=== PATIENT | male | born 1955 | race Caucasian/White ===

== ENCOUNTER 2016-05-05 08:04 | Emergency (ER) | payer OTHER ==
[~2016-05-05] VITALS: Ht 170.2 cm; Wt 70.3 kg
[~2016-05-05 08:04] MED LIST: ACET500C PO; AMLO10TA2 PO; ATOR1TAB18 PO; FISHCAP4 PO; GABA400C5 PO; GLIP5TAB8 PO; HYDR25TA35 PO; PROP10TA6 PO
[2016-05-05 08:16] VITALS: BP 154/86; PULSE 83; RESP 18; TEMP 98.3; O2SAT 97
[2016-05-05] MEDS ORDERED: AMOX500T PO (08:40)
[2016-05-05] MEDS ORDERED: TRAM50TA PO (08:40)
--- NOTE | 2016-05-05 08:47 | PD ---
HPI Chief Complaint: ENT Complaint Time Seen by Provider: 08:33 Travel History International Travel<30 days: No Contact w/Intl Traveler<30days: No Traveled to known affect area: No History of Present Illness HPI This patient complains of right ear pain. It's radiating into his right cheek and jaw. Hearing seems muffled on the right ear. No fever. No chest symptoms. Severity is moderate PFSH Past Medical History High Cholesterol: Yes Diabetes: Yes Patient Takes Glucophage: No Diminished Hearing: No Hypertension: Yes Influenza Vaccination: No ?: Not Social History Alcohol Use: No Tobacco Use: Yes (04/13) Substance Use: No Allergies-Medications (Allergen,Severity, Reaction): Coded Allergies: No Known Allergies (Unverified , 05/05/16) Reported Meds & Prescriptions Reported Meds & Active Scripts Active Tramadol (Tramadol HCl) 50 Mg Tab 50 Mg PO Q6H PRN Amoxicillin 500 Mg Tab 500 Mg PO TID Amlodipine (Amlodipine Besylate) 10 Mg Tab 10 Mg PO DAILY Propranolol (Propranolol HCl) 10 Mg Tab 10 Mg PO TID Hydralazine (Hydralazine HCl) 25 Mg Tab 25 Mg PO TID Take with a meal Gabapentin 400 Mg Cap 400 Cap PO BID Atorvastatin (Atorvastatin Calcium) 80 Mg Tab 80 Mg PO HS Glipizide 5 Mg Tab 5 Mg PO BIDAC Take 30 minutes before a meal Reported Acetaminophen 500 Mg Cap 1,000 Mg PO Q4-6H PRN Fish Oil + D3 (Fish Oil-Cholecalciferol) 1,200-1,000 Mg-Unit Cap 1 Cap PO DAILY Review of Systems General / Constitutional: No: Fever HENT: No: Headaches Cardiovascular: No: Chest Pain or Discomfort Physical Exam Narrative NECK: Symmetrical appearance, midline trachea. No mass or crepitus. Thyroid without enlargement, tenderness, or mass. SKIN: Inspection shows no rash or ulcers. Palpation shows no induration or nodules. Throat clear Left TM and canal normal Right canal normal but right TM is bulging with fluid behind it and diminished landmarks No erythema or warmth or swelling of the face or jaw Data Data Last Documented VS Vital Signs Date Time Temp Pulse Resp B/P Pulse Ox O2 Delivery O2 Flow Rate FiO2 05/05/16 08:16 98.3 83 18 154/86 97 Room Air MDM Medical Decision Making Medical Screen Exam Complete: Yes Emergency Medical Condition: Yes Medical Record Reviewed: Yes Differential Diagnosis Otitis media, pharyngitis, otitis externa Narrative Course I have reviewed the patient's electronic medical record. Presentation seems most consistent with otitis media on the right side. I don' t see any evidence of abnormality other than the eardrum itself I prescribed some amoxicillin and something for pain. He says he is seeing his family doctor in 2 days Diagnosis Primary Impression: Right acute otitis media Additional Instructions: The patient was advised to follow up with their physician and return if they worsen. The patient was warned about potential sedation for the medications they will receive on prescription. Med/Other Pt SpecificInfo: Prescription(s) given Scripts Tramadol 50 Mg Tab50 Mg PO Q6H PRN (PAIN) #15 TAB Ref 0 Prov:Tima Varela MD 05/05/16 Amoxicillin 500 Mg [id number] Mg PO TID #21 TAB Ref 0 Prov:Tima Varela MD 05/05/16 Disposition: 01 DISCHARGE HOME Condition: Stable Tima Varela MD May 05, 2016 08:47
== END 2016-05-05 08:55 | disposition home or self-care (01) ==
LOC: PHED 08:04 → PHEFT 08:55
DX: H66.91 Otitis media, unspecified, right ear (principal); F17.200 Nicotine dependence, unspecified, uncomplicated
CPT/HCPCS: 99282

== ENCOUNTER 2016-05-07 13:40 | Inpatient (IN) | payer MEDICAID, OTHER ==
[~2016-05-07] VITALS: Ht 177.8 cm; Wt 73.4 kg
[2016-05-07] VITALS (11 sets, daily range): BP systolic 116–132; BP diastolic 62–73; PULSE 53–90; RESP 0–22; TEMP 96.3–98.6; O2SAT 96–100
[~2016-05-07 13:40] MED LIST changes: +AMOX500T PO; +TRAM50TA PO
[2016-05-07] MEDS ORDERED: DOPamine INJ PREMIX 500 ML ONE (13:57)
[2016-05-07] MEDS ORDERED: SODIUM CHLORIDE 0.9% FLUSH 5 ML FLUSH IVF PRN ×2 (14:00→14:45)
--- NOTE | 2016-05-07 14:08 | PD ---
HPI . CODE BLUE Chief Complaint: Respiratory Distress Time Seen by Provider: 13:53 Travel History International Travel<30 days: No Contact w/Intl Traveler<30days: No Traveled to known affect area: No History of Present Illness HPI Patient presented to us after successfully being resuscitated following CODE BLUE. He was brought in by [facility]. They report 2 episodes of PEA cardiac arrest. They treated him with basic CPR, Combitube, epinephrine, atropine and bicarbonate. He arrived to us with a pulse and a blood pressure but no spontaneous respirations. PFSH Past Medical History Medical History: Unable to Obtain High Cholesterol: Yes Diabetes: Yes Patient Takes Glucophage: No Diminished Hearing: No Hypertension: Yes Past Surgical History Surgical History: Unable to Obtain Social History Alcohol Use: No Tobacco Use: Yes (04/13) Substance Use: No Allergies-Medications (Allergen,Severity, Reaction): Coded Allergies: No Known Allergies (Unverified , 05/05/16) Reported Meds & Prescriptions Reported Meds & Active Scripts Active Tramadol (Tramadol HCl) 50 Mg Tab 50 Mg PO Q6H PRN Amoxicillin 500 Mg Tab 500 Mg PO TID Amlodipine (Amlodipine Besylate) 10 Mg Tab 10 Mg PO DAILY Propranolol (Propranolol HCl) 10 Mg Tab 10 Mg PO TID Hydralazine (Hydralazine HCl) 25 Mg Tab 25 Mg PO TID Take with a meal Gabapentin 400 Mg Cap 400 Cap PO BID Atorvastatin (Atorvastatin Calcium) 80 Mg Tab 80 Mg PO HS Glipizide 5 Mg Tab 5 Mg PO BIDAC Take 30 minutes before a meal Reported Acetaminophen 500 Mg Cap 1,000 Mg PO Q4-6H PRN Fish Oil + D3 (Fish Oil-Cholecalciferol) 1,200-1,000 Mg-Unit Cap 1 Cap PO DAILY Review of Systems ROS Limitations: Unresponsive Except as stated in HPI: all other systems reviewed are Neg Physical Exam Narrative GENERAL: Patient is unresponsive with a [place] Coma Scale of 3 SKIN: Warm and dry. He is currently he called EMS reports she's had a couple of episodes of cyanosis. HEAD: Atraumatic. Normocephalic. EYES: Pupils are fixed and dilated. ENT: No nasal bleeding or discharge. Mucous membranes pink and moist. NECK: Trachea midline. CARDIOVASCULAR: Regular rate and rhythm. RESPIRATORY: No spontaneous respiratory effort. GASTROINTESTINAL: Abdomen soft, non-tender. It is distended. MUSCULOSKELETAL: No obvious deformities. No edema. NEUROLOGICAL: [place] Coma Score of 3. No response to intubation. PSYCHIATRIC: Unable to assess Data Data Last Documented VS Vital Signs Date Time Temp Pulse Resp B/P Pulse Ox O2 Delivery O2 Flow Rate FiO2 05/07/16 14:06 100 05/07/16 13:52 97.9 61 0 116/67 97 Orders Ckmb (Isoenzyme) Profile (05/07/16 13:53) Complete Blood Count With Diff (05/07/16 13:53) Comprehensive Metabolic Panel (05/07/16 13:53) Magnesium (Mg) (05/07/16 13:53) Prothrombin Time / Inr (Pt) (05/07/16 13:53) Act Partial Throm Time (Ptt) (05/07/16 13:53) Troponin I (05/07/16 13:53) Chest, Single Ap (05/07/16 13:53) Ecg Monitoring (05/07/16 13:53) Bilateral Bp Monitoring (05/07/16 13:53) Iv Access Insert/Monitor (05/07/16 13:53) Oximetry (05/07/16 13:53) Oxygen Administration (05/07/16 13:53) Sodium Chloride 0.9% Flush (Ns Flush) (05/07/16 14:00) Ct Brain W/O Iv Contrast(Rout) (05/07/16 ) Dopamine Inj Premix (Dopamine Inj Premix (05/07/16 13:57) Continue Urinary Catheter .ONCE (05/07/16 14:03) Urinalysis - C+S If Indicated (05/07/16 14:03) Janak-Gastric Tube Insert/Mon (05/07/16 14:03) Ct Pulmonary Angiogram (05/07/16 14:08) Drug Screen, Random Urine (05/07/16 14:08) Labs Laboratory Tests Test 05/07/16 14:00 White Blood Count 15.7 TH/MM3 Red Blood Count 2.97 MIL/MM3 Hemoglobin 9.4 GM/DL Hematocrit 31.4 % Mean Corpuscular Volume 105.8 FL Mean Corpuscular Hemoglobin 31.7 PG Mean Corpuscular Hemoglobin 30.0 % Concent Red Cell Distribution Width 18.7 % Platelet Count 537 TH/MM3 Mean Platelet Volume 9.5 FL Neutrophils (%) (Auto) % Lymphocytes (%) (Auto) % Monocytes (%) (Auto) % Eosinophils (%) (Auto) % Basophils (%) (Auto) % Neutrophils # (Auto) TH/MM3 Lymphocytes # (Auto) TH/MM3 Monocytes # (Auto) TH/MM3 Eosinophils # (Auto) TH/MM3 Basophils # (Auto) TH/MM3 CBC Comment AUTO DIFF MDM Medical Decision Making Medical Screen Exam Complete: Yes Emergency Medical Condition: Yes Medical Record Reviewed: Yes Interpretation(s) EKG shows a sinus rhythm with a first-degree block. He has some minimal ST segment depression laterally. Differential Diagnosis Differential diagnosis includes primary cardiac arrest, respiratory arrest, head injury, drug intoxication, diabetic coma Narrative Course Patient presents status post successful resuscitation from a cardiac arrest. He now has a pulse pressure. His blood pressure has been drifting down so dopamine has been started. He has a [place] Coma Score of 3. The intensive care unit will accept the patient straight from CT. Critical Care Narrative Aggregate critical care time was 30 minutes. Time to perform other separately billable procedures was not included in the critical care time. My time did not include minutes spent treating any other patients simultaneously or on activities that did not directly contribute to the patient's treatment. The services I provided to this patient were to treat and/or prevent clinically significant deterioration that could result in: Further neurological or cardiac disability I provided critical care services requiring my management, as noted below: Chart data review, documentation time, medication orders and management, vital sign assessments/reviewing monitor data, ordering and reviewing lab tests, ordering and interpreting/reviewing x-rays and diagnostic studies, care of the patient and discussion of the patient with the admitting physicians. Procedures Procedure Narrative The procedure was done in emergently. Therefore, was obtained. INTUBATION: The patient was put in optimal position for the procedure. The patient did not require rapid sequence intubation. The patient was intubated with a 8-0 cuffed endotracheal tube. Tube placement was confirmed by visualization of the tube and balloon passing through the cords, capnometry and subsequent chest x-ray. Breath sounds were equal and well aerated bilaterally postintubation. No breath sounds over stomach. Patient tolerated procedure well. EKG Prior to Arrival: Yes Physician Communication Physician Communication Dr. Jama was consult shortly after patient's arrival regarding possible cooling of the patient. He has requested a CT of the head, CT for PE and a drug screen. He will then make a decision regarding cooling. Diagnosis Primary Impression: Cardiac arrest Admitting Information Admitting Physician Requests: Admit Condition: Serious Maritza Garcia MD May 07, 2016 14:08
[2016-05-07 14:23] LABS: HEMATOCRIT 31.4 % (39.0-51.0); MEAN CELL VOLUME 105.8 FL (80.0-100.0); MEAN CORPUSCULAR HEMOGLOBIN 31.7 PG (27.0-34.0); PLATELET COUNT 537 TH/MM3 (150-450); RED BLOOD COUNT 2.97 MIL/MM3 (4.50-5.90); RED CELL DISTRIBUTION WIDTH 18.7 % (11.6-17.2); WHITE BLOOD COUNT 15.7 TH/MM3 (4.0-11.0)
[2016-05-07 14:24] LABS: HEMO FLAGS AUTO DIFF
[2016-05-07 14:30] LABS: INTERNATIONAL NORMALIZED RATIO 1.1 RATIO
[2016-05-07 14:31] LABS: APTT (PATIENT) 50.9 SEC (24.3-30.1)
[2016-05-07 14:37] LABS: BACTERIA, URINE MOD /hpf; BLOOD, URINE MOD (NEG); COMMENT (UR) CATH-CULTURE IND; CULTURE IF INDICATED CATH CULTURE IND; GLUCOSE,URINE TRACE mg/dL (NEG); KETONE, URINE TRACE mg/dL (NEG); NITRITE,URINE NEG (NEG); SQUAMOUS EPITHELIAL CELL URINE 1 /hpf (0-5); URINE COLOR YELLOW (YELLW/STRAW)
[2016-05-07] MEDS ORDERED: IOHEXOL 350 MG/ML 10 ML VIAL (for RAD DIAG) IV ONE (14:38)
[2016-05-07] MEDS ORDERED: SODIUM CHLOR 0.9% 1000 ML INJ 1,000 ML IV SCH ×4 (14:41→16:30)
--- NOTE | 2016-05-07 14:41 | RADRPT ---
EXAM DATE/TIME: 05/07/2016 14:26 [facility] COMPARISON: No previous studies available for comparison. INDICATIONS : Found unresponsive in asystole; status-post code. RADIATION DOSE: 59.65 CTDIvol (mGy) MEDICAL HISTORY : Hypertension. Diabetes mellitus type 2. SURGICAL HISTORY : None. ENCOUNTER: Initial ACUITY: 1 day PAIN SCALE: Non-responsive LOCATION: cranial TECHNIQUE: Multiple contiguous axial images were obtained of the head. Using automated exposure control and adj ustment of the mA and/or kV according to patient size, radiation dose was kept as low as reasonably a chievable to obtain optimal diagnostic quality images. FINDINGS: CEREBRUM: The ventricles are normal for age and symmetric. There is a focal hypodensity identified within the w lilliam matter adjacent to the right lateral ventricle. The bennett-white matter is otherwise well-preserve d. No evidence of sulcal effacement or midline shift. POSTERIOR FOSSA: The cerebellum and brainstem are intact. The 4th ventricle is midline. The cerebellopontine angle i s unremarkable. EXTRACRANIAL: The visualized portion of the orbits is intact. SKULL: The calvaria is intact. No evidence of skull fracture. CONCLUSION: Focal hypodensity adjacent to the right lateral ventricle. Chronicity is unknown. No evidence of sulc al effacement, mass effect or midline shift. Consider MRI when clinically able.. Bisi Sprague MD on May 07, 2016 at 14:38 Board Certified Radiologist. This report was verified electronically.
[2016-05-07] MEDS ORDERED: RESP: ALBUTEROL 2.5 MG/IPRATROPIUM 0.5 MG NEB (PRN) INH (14:45)
[2016-05-07] MEDS ORDERED: PROPOFOL 1000 MG/100 ML BTL IV PRN (14:45)
[2016-05-07] MEDS ORDERED: PROPOFOL 1000 MG/100 ML INJ 100 ML ONE (14:45)
[2016-05-07] MEDS ORDERED: MISCELLANEOUS NURSING INFORMATION XX SCH (14:45)
[2016-05-07] MEDS ORDERED: ACETAMINOPHEN 325 MG TAB PO PRN (14:45)
[2016-05-07] MEDS ORDERED: CHLORHEXIDINE GLUCONATE 2 % 1 PACK (2 CLOTHS) TOP PRN (14:45)
--- NOTE | 2016-05-07 14:47 | RADRPT ---
EXAM DATE/TIME: 05/07/2016 14:33 Caution: Report not yet finalized and possibly incomplete! INDICATIONS : Found unresponsive in asystole; status-post code. IV CONTRAST: 70 cc Omnipaque 350 (iohexol) IV RADIATION DOSE: 23.40 CTDIvol (mGy) MEDICAL HISTORY : Hypertension. Diabetes mellitus type 2. SURGICAL HISTORY : None. ENCOUNTER: Initial ACUITY: 1 day PAIN SCALE: Non-responsive LOCATION: chest TECHNIQUE: Volumetric scanning of the chest was performed using a pulmonary embolism protocol MIP images were re constructed. Using automated exposure control and adjustment of the mA and/or kV according to patien t size, radiation dose was kept as low as reasonably achievable to obtain optimal diagnostic quality images. FINDINGS: The examination is of good diagnostic quality. No pulmonary embolus is identified. There are large bilateral pleural effusions. There mild atelectatic changes in both lung bases. There is diffuse interstitial edema consistent with congestive failure. The heart is mildly enlarged. There is no significant hilar, mediastinal or axillary adenopathy. The endotracheal tube and nasogast liat tube are in good position. The limited portions of upper abdomen visualized demonstrate some mild induration or edema throughout the retroperitoneum. The visualized bony structures are grossly intact. CONCLUSION: 1. No pulmonary embolus identified. 2. Bilateral pleural effusions, cardiomegaly and compressive atelectasis. Rigo Alston MD on May 07, 2016 at 14:43 Board Certified Radiologist. This report was verified electronically.
[2016-05-07 14:56] LABS: ALKALINE PHOSPHATASE 121 U/L (45-117); ALT (GPT) 21 U/L (12-78); ANION GAP 20 MEQ/L (5-15); AST (GOT) 25 U/L (15-37); BICARBONATE 14.5 MEQ/L (21.0-32.0); BLOOD UREA NITROGEN 86 MG/DL (7-18); CHLORIDE 106 MEQ/L (98-107); CREATINE KINASE 122 U/L (39-308); GLOMERULAR FILTRATION RATE 7 ML/MIN (>89); MAGNESIUM 2.5 MG/DL (1.5-2.5); POTASSIUM 6.4 MEQ/L (3.5-5.1); SODIUM (NA) 140 MEQ/L (136-145); TOTAL BILIRUBIN ADULT 0.5 MG/DL (0.2-1.0)
[2016-05-07] MEDS ORDERED: LORazepam 2 MG/ML VIAL ONE (14:56)
[2016-05-07] MEDS ORDERED: ENOXAPARIN SODIUM 40 MG/0.4 ML SYRINGE SQ SCH (15:00)
[2016-05-07 15:01] LABS: CORRECTED NUCLEATED RBC 1 /100 WBC (0-0); EOSINOPHILS 2 % (0-4); METAMYELOCYTES 1 % (0-1); MYELOCYTES 2 % (0-0); NEUTROPHIL # MANUAL DIFF 8.9 TH/MM3 (1.8-7.7); PLATELET ESTIMATE SMEAR HIGH (NORMAL); PLATELET MORPHOLOGY NORMAL (NORMAL); POLYS (SEG NEUTROPHILS) 54 % (16-70); SCAN/DIFF FINAL DIFF MANUAL; WBC DIFF SAMPLE 100
[2016-05-07 15:09] LABS: CKMB 6.3 NG/ML (0.5-3.6)
[2016-05-07 15:18] LABS: BLOOD GAS BASE EXCESS -16.3 mmol/L (-2-2); BLOOD GAS CARBOXYHEMOGLOBIN 1.7 % (0-4); BLOOD GAS HCO3 12 mmol/L (22-26); BLOOD GAS METHEMOGLOBIN 1.6 % (0-2); BLOOD GAS O2 HGB SATURATION 96 % (90-100); BLOOD GAS OXYGEN CONTENT 14.9 Vol % (12.0-20.0); BLOOD GAS PCO2 40 mmHg (38-42); BLOOD GAS PO2 361 mmHG (61-120); BLOOD GAS TOTAL HGB 10.4 G/DL (12.0-16.0); CRITICAL VALUE YES; OXYGEN DEVICE VENTILATOR; TEMP CORR TO 98.6
[2016-05-07 15:19] LABS: DRAW SITE RT RADIAL; FIO2 100 %; NUMBER OF ARTERIAL PUNCTURES 1; STAT YES; ULNAR PULSE PRESENT
[2016-05-07] MEDS ORDERED: INSULIN HUMAN REGULAR 1,000 UNITS/10 ML VIAL IV PUSH STA (15:22)
[2016-05-07] MEDS ORDERED: CALCIUM CHLORIDE INJ 2 GM in DEXTROSE 5% IN WATER 100ML INJ 100 ML IV STA ×2 (15:22)
[2016-05-07] MEDS ORDERED: MIDAZOLAM 100 MG/ML INJ 100 ML IV SCH (15:30)
[2016-05-07] MEDS ORDERED: DEXTROSE 50% IN WATER 50 ML VIAL(D50) IV PUSH ONE (15:30)
[2016-05-07] MEDS ORDERED: RESP: ALBUTEROL 2.5 MG/IPRATROPIUM 0.5 MG NEB (SCH) NEB ONE (15:30)
[2016-05-07] MEDS ORDERED: SODIUM BICARBONATE 8.4% INJ 50 MEQ/50 ML SYR IV PUSH ONE ×2 (15:30)
--- NOTE | 2016-05-07 15:32 | HHI.HP ---
[facility] Service Critical Care Medicine Primary Care Physician Mima Molina MD Admission Diagnosis cardiac arrest Diagnosis: (1) Cardiac arrest Diagnosis: Principal (2) Asystole Diagnosis: Principal (3) PEA (Pulseless electrical activity) Diagnosis: Principal (4) Anoxic brain injury Diagnosis: Principal (5) Shock Diagnosis: Principal (6) Lactic acidemia Diagnosis: Principal (7) Sepsis Diagnosis: Principal (8) Acute on chronic kidney failure Diagnosis: Principal (9) Hyperkalemia Diagnosis: Principal (10) UTI (urinary tract infection) Diagnosis: Principal (11) Probable mitral valve vegetation Diagnosis: Principal (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 (13) Pulmonary edema Diagnosis: Principal (14) Diabetes Diagnosis: Secondary (15) Hypertension Diagnosis: Secondary (16) Tobacco use disorder Diagnosis: Secondary Chief Complaint: Cardiac arrest Anoxic brain injury Travel History International Travel<30 Days: No Contact w/Intl Traveler <30 Da: No Traveled to Known Affected Are: No Sepsis Criteria SIRS Criteria (2 or more): Heart rate over 90, WBC > 49870, < 4000 or > 10% bands Sepsis Criteria (SIRS+source): Infect source susp/known Severe Sepsis (+one): Organ Dysfunction, Hypotension Septic Shock Criteria: Lactic acid >=4 Criteria Outcome: Meets septic shock criteria History of Present Illness Patient is a 60-year-old male with past medical history significant for chronic kidney disease, hypertension, diabetes, dyslipidemia and tobacco abuse. Patient was brought to the ER after being successfully resuscitated following CODE BLUE. Apparently patient's mother went shopping for approximately 30 minutes, when she came back she found the patient slumped over on a chair. She immediately called EMS but did not start CPR. Within the next 10-15 minutes patient's brother in law arrived and attempted to do CPR. EMS arrived in next 5 -10 min and they took approximately 25 minutes CPR, epinephrine, atropine and bicarbonate to regain spontaneous circulation back. Initial rhythm on EMS arrival was asystole, intermittently patient was in PEA before actually getting return of spontaneous circulation. A Combitube was placed which was exchanged for endotracheal tube in the ED. Patient did not require any medication for intubation and did not have any gag reflex or cough. Pupils were dilated and fixed on arrival to the ED. I was called for evaluation for code cool. Patient was emergently sent for a CT of the head and CT PE protocol of the chest. CT head without any acute bleed but there was a chronic appearing small hypodensity near the right ventricle. CT chest did not show PE but showed bilateral pleural effusions. Lab data showed a BUN of 86 creatinine of 7.8 potassium of 6.4. His white count was 15.7 his ABG showed a pH of 7.09 PCO2 of 40 and PO2 of 361. Hyperkalemia was immediately treated with calcium chloride, 2 Amps of bicarbonate followed by bicarbonate infusion, 7 units IV insulin followed by D50. 2-D echo which was being done simultaneously- on my review showed normal ejection fraction mild MR and a possible vegetation of the anterior mitral valve. Official report is pending, discussed with Dr. Allen I evaluated the patient in the ED and also discussed with the ER physician. Patient's downtime is unknown and clearly he was in cardiac arrest more than 45 minutes prior to return of spontaneous circulation. Patient is comatose and is now has developed myoclonus. He does not meet criteria for induced hypothermia due to prolonged more than 45 minutes downtime and evidence of severe anoxic injury, and also initial rhythm being asystole. I discussed this with patient' s sister Kim and mother was also with her. Family requested to make the patient a DNR and not to resuscitated anymore. Review of Systems ROS Limitations: Intubated, Unresponsive Past Family Social History Allergies: Coded Allergies: No Known Allergies (Unverified , 05/05/16) Past Medical History Chronic kidney disease Type 2 diabetes Hypertension Dyslipidemia Tobacco abuse Past Surgical History Unknown Reported Medications Tramadol (Tramadol HCl) 50 Mg Tab 50 Mg PO Q6H PRN Amoxicillin 500 Mg Tab 500 Mg PO TID Amlodipine (Amlodipine Besylate) 10 Mg Tab 10 Mg PO DAILY Propranolol (Propranolol HCl) 10 Mg Tab 10 Mg PO TID Hydralazine (Hydralazine HCl) 25 Mg Tab 25 Mg PO TID Gabapentin 400 Mg Cap 400 Cap PO BID Atorvastatin (Atorvastatin Calcium) 80 Mg Tab 80 Mg PO HS Glipizide 5 Mg Tab 5 Mg PO BIDAC Acetaminophen 500 Mg Cap 1,000 Mg PO Q4-6H PRN Fish Oil + D3 (Fish Oil-Cholecalciferol) 1,200-1,000 Mg-Unit Cap 1 Cap PO DAILY Active Ordered Medications Reviewed Family History Unable to obtain at this time Social History Half pack a day cigarette smoker Physical Exam Vital Signs Vital Signs Date Time Temp Pulse Resp B/P Pulse Ox O2 Delivery O2 Flow Rate FiO2 05/07/16 14:06 100 05/07/16 13:52 97.9 61 0 116/67 97 05/07/16 13:45 97.9 53 20 116/67 97 Physical Exam GENERAL: Patient is comatose on the vent, GCS 3 now with myoclonus SKIN: Warm and dry. No rashes HEAD: Atraumatic. Normocephalic. EYES: Pupils are fixed and dilated at 5 mm. ENT: No nasal bleeding or discharge. Orotracheally intubated NECK: Trachea midline. CARDIOVASCULAR: Regular rate and rhythm. Systolic murmur heard in all areas RESPIRATORY: Intubated on the vent. Air entry equal bilaterally no wheezes. Heart spontaneous breathing GASTROINTESTINAL: Abdomen soft, non-tender. MUSCULOSKELETAL: No obvious deformities. No edema. NEUROLOGICAL: [place] Coma Score of 3. Comatose. No withdrawal to deep pain. Involuntary jerky movements of upper and lower extremities indicating myoclonus. Laboratory Laboratory Tests Test 05/07/16 05/07/16 14:00 14:12 White Blood Count 15.7 Red Blood Count 2.97 Hemoglobin 9.4 Hematocrit 31.4 Mean Corpuscular Volume 105.8 Mean Corpuscular Hemoglobin 31.7 Mean Corpuscular Hemoglobin 30.0 Concent Red Cell Distribution Width 18.7 Platelet Count 537 Mean Platelet Volume 9.5 Neutrophils (%) (Auto) Lymphocytes (%) (Auto) Monocytes (%) (Auto) Eosinophils (%) (Auto) Basophils (%) (Auto) Neutrophils # (Auto) Lymphocytes # (Auto) Monocytes # (Auto) Eosinophils # (Auto) Basophils # (Auto) CBC Comment AUTO DIFF Prothrombin Time 12.0 Prothromb Time International 1.1 Ratio Activated Partial 50.9 Thromboplast Time Urine Color YELLOW Urine Turbidity HAZY Urine pH 6.0 Urine Specific [place] 1.013 Urine Protein 300 Urine Glucose (UA) TRACE Urine Ketones TRACE Urine Occult Blood MOD Urine Nitrite NEG Urine Bilirubin NEG Urine Urobilinogen LESS THAN 2.0 Urine Leukocyte Esterase NEG Urine RBC 74 Urine WBC 18 Urine Squamous Epithelial 1 Cells Urine Amorphous Sediment RARE Urine Bacteria MOD Microscopic Urinalysis Comment CATH-CULTURE IND Date/Time Procedure Status Source Growth 05/07/16 14:12 Urine Culture Received Urine Catheterized Urine Pending Result Diagram: 05/07/[address] brain no hypodensity adjacent to right ventricle CT chest-no PE, bilateral moderate pleural effusions Septic Shock Reassessment Heart: Regular rate and rhythm Lungs: Course Skin: Cold Peripheral Pulses: Weak Right Radial Weak Left Radial Capillary Refill: Brisk Assessment and Plan Assessment and Plan NEURO: Anoxic brain injury 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 No weaning trials until mentation improved -DuoNeb every 6 hours and when necessary, ventilator bundle -Empiric Zosyn CV: Cardiac arrest/Asystole Shock Probable mitral valve regurgitation Pulmonary edema Mild troponin elevation Lactic acidosis -Return of spontaneous circulation after 25 minutes of CPR, prolonged downtime prior to initiation of CPR -Unclear etiology of asystole, could be hyperkalemia versus acute NM -2-D echo official report pending, EF normal on my review with possible anterior mitral leaflet vegetation -Cycle troponin. I will not consult cardiology due to very poor neuro exam -Normal saline IV fluids 3 L bolus and bicarbonate infusion at 75 mL per -On dopamine to keep map above 65 GI: -Nothing by mouth except meds, IV Protonix : Acute on chronic kidney failure Hyperkalemia -Hyperkalemia treated with calcium chloride, bicarbonate, IV insulin followed by D50, and breathing treatment -Monitor renal function closely. Place O[place] catheter. Acute renal failure workup. Nephrology consult only if not improving given poor neuro prognosis\ -Repeat CMP in 1 hour. 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 D/W Dr. Allen -Trend lactic acid HEME: Anemia, microcytic -Monitor CBC, CMP, coags. Check B-12, TSH ENDO: Type 2 diabetes -Carefully replace electrolytes -Hyperkalemia treatment as above -SSI if needed PROPH: -Bilateral lower extremity SCDs. Heparin 5000 units subcutaneous every 12. IV Protonix 40 mg daily for GI prophylaxis LINES: -Utilize peripheral IVs, place central line if needed CC time 120 min excluding procedures Code Status Full Code Discussed Condition With ED physician, and also Dr. Allen about Echo Problem Qualifiers (1) Sepsis: Qualified Code: A41.9 - Sepsis, due to unspecified organism (2) UTI (urinary tract infection): (3) Pulmonary edema: Qualified Code: J81.0 - Acute pulmonary edema (4) Diabetes: (5) Hypertension: Qualified Code: I10 - Essential hypertension Milena Jama MD May 07, 2016 15:32
[2016-05-07] MEDS: PROPOFOL 1000 MG/100 ML INJ 100 ML IV SCH ×2 (15:34→21:21)
[2016-05-07 15:36] LABS: AMPHETAMINE, URINE NEG (NEG); BARBITURATES, URINE NEG (NEG); COCAINE, URINE NEG (NEG)
--- NOTE | 2016-05-07 15:49 | RADRPT ---
EXAM DATE/TIME: 05/07/2016 15:22 [facility] COMPARISON: CHEST PA & LAT, March 14, 2016, 22:32. INDICATIONS : Chest pain. MEDICAL HISTORY : Hypertension. Diabetes mellitus type II. SURGICAL HISTORY : None. ENCOUNTER: Initial ACUITY: 1 day PAIN SCORE: Non-responsive. LOCATION: Not available FINDINGS: Portable supine view of the chest demonstrates an endotracheal tube with the tip just beyond the leve l of the clavicles. Nasogastric tube with the proximal port below the level of the diaphragm. Heart size appears normal. Bilateral cephalization of pulmonary vasculature and adjacent indistinctne ss of the parenchyma consistent with volume overload versus pulmonary edema. Osseous structures are intact. CONCLUSION: Lines and tubes appear appropriate in position. Findings consistent with volume overload versus pulmo nary edema.. Bisi Sprague MD on May 07, 2016 at 15:45 Board Certified Radiologist. This report was verified electronically.
[2016-05-07] MEDS: SODIUM BICARBONATE 8.4% INJ 75 MEQ in SODIUM CHLOR 0.9% 1000 ML INJ 1,000 ML IV SCH (16:00)
[2016-05-07] MEDS: PIPERACIL-TAZO 2.25 GM PREMIX 50 ML IV SCH (16:32)
[2016-05-07] MEDS ORDERED: VANCOMYCIN INJ 1,150 MG in SODIUM CHLOR 0.9% 250 ML INJ 250 ML IV ONE (17:00)
[2016-05-07] MEDS: RESP: ALBUTEROL 2.5 MG/IPRATROPIUM 0.5 MG NEB (SCH) NEB ×2 (17:10→19:25)
--- NOTE | 2016-05-07 17:10 | EC ---
Study Study Date:05/07/2016 STUDY CONCLUSIONS SUMMARY - Left ventricle: The cavity size was normal. Wall thickness was normal. Systolic function was normal. The estimated ejection fraction was in the range of 55% to 60%. Wall motion was normal; there were no regional wall motion abnormalities. - Aortic valve: Valve area: 2.77cm^2 (Vmax). - Mitral valve: There was a possible, mobile vegetation on the left ventricular aspect of the anterior leaflet. Mild regurgitation. - Left atrium: The atrium was mildly dilated. - Tricuspid valve: Mild regurgitation. - Pulmonary arteries: Systolic pressure was mildly increased. PA peak pressure: 41mm Hg (S). If LV function is below 40, please consider prescribing an ACEI or ARB or document rationale for non-use. PROCEDURE DATA STUDY STATUS: Elective. Procedure: Transthoracic echocardiography. Image quality was good. Scanning was performed from the parasternal, apical, and subcostal acoustic windows. Study completion: The patient tolerated the procedure well. Transthoracic echocardiography. M-mode, complete 2D, complete spectral Doppler, and color Doppler. Patient status: Inpatient. CARDIAC ANATOMY LEFT VENTRICLE: The cavity size was normal. Wall thickness was normal. Systolic function was normal. The estimated ejection fraction was in the range of 55% to 60%. Wall motion was normal; there were no regional wall motion abnormalities. AORTIC VALVE: Trileaflet; mildly thickened, mildly calcified leaflets. Doppler: Transvalvular velocity was within the normal range. There was no stenosis. No regurgitation. Valve area: 2.77cm^2 (Vmax). AORTA: Aortic root: The aortic root was poorly visualized and normal in size. MITRAL VALVE: Mildly thickened leaflets, . There was a possible, mobile vegetation on the left ventricular aspect of the anterior leaflet. Doppler: Transvalvular velocity was within the normal range. There was no evidence for stenosis. Mild regurgitation. LEFT ATRIUM: The atrium was mildly dilated. RIGHT VENTRICLE: The cavity size was normal. Wall thickness was normal. PULMONIC VALVE: Doppler: Transvalvular velocity was within the normal range. There was no evidence for stenosis. Trace regurgitation. TRICUSPID VALVE: Structurally normal valve. Doppler: Transvalvular velocity was within the normal range. Mild regurgitation. PULMONARY ARTERY: Systolic pressure was mildly increased. RIGHT ATRIUM: The atrium was normal in size. PERICARDIUM: There was no pericardial effusion. SYSTEMIC VEINS: Inferior vena cava: The vessel was normal in size. BASIC MEASUREMENTS ADULT Normal Left ventricle LV internal dimension, ED, chordal level, *56.3 mm 43-52 PLAX LV internal dimension, ES, chordal level, 36.5 mm 23-38 PLAX Fractional shortening, chordal level, PLAX 35 % >29 LV posterior wall thickness, ED 7.6 mm IVS/LVPW ratio, ED 1.07 <1.3 Ventricular septum Septal thickness, ED 8.12 mm Aortic valve Leaflet separation 16 mm 15-26 BASIC MEASUREMENTS ADULT Normal Aortic valve Leaflet separation 16 mm 15-26 Aorta Root diameter, ED 21 mm 20-37 Left atrium Anterior-posterior dimension, ES *42 mm 19-40 LA/aortic root ratio 2 DOPPLER MEASUREMENTS ADULT Normal Main pulmonary artery Pressure, S *41 mm Hg =30 Aortic valve Peak velocity, S 152 cm/s Valve area, Vmax 2.77 cm^2 Mitral valve Maximal regurgitant velocity 389 cm/s Tricuspid valve Regurgitant peak velocity 308 cm/s Peak RV-RA gradient, S 38 mm Hg Maximal regurgitant velocity 308 cm/s Systemic veins Estimated CVP 10 mm Hg Right ventricle RV pressure, S *48 mm Hg <30 Pulmonic valve Peak velocity, S 136 cm/s LEGEND: Mean values are shown as u=mean value. Asterisk (*) pritchard values outside specified normal range. Prepared and signed by Tye Allen [id number]
[2016-05-07 17:45] LABS: BLOOD GAS BASE EXCESS -10.5 mmol/L (-2-2); BLOOD GAS CARBOXYHEMOGLOBIN 1.7 % (0-4); BLOOD GAS HCO3 15 mmol/L (22-26); BLOOD GAS METHEMOGLOBIN 1.3 % (0-2); BLOOD GAS O2 HGB SATURATION 86 % (90-100); BLOOD GAS OXYGEN CONTENT 9.9 Vol % (12.0-20.0); BLOOD GAS PCO2 32 mmHg (38-42); BLOOD GAS PO2 60 mmHg (61-120); BLOOD GAS TOTAL HGB 8.1 G/DL (12.0-16.0); CRITICAL VALUE YES; OXYGEN DEVICE VENTILATOR; TEMP CORR TO 98.6
[2016-05-07 17:46] LABS: DRAW SITE RT RADIAL; FIO2 40 %; NUMBER OF ARTERIAL PUNCTURES 1; STAT NO; ULNAR PULSE PRESENT; VENT SETTINGS PRVC/AC 20/600/
[2016-05-07 18:01] LABS: ALKALINE PHOSPHATASE 113 U/L (45-117); ALT (GPT) 27 U/L (12-78); ANION GAP 14 MEQ/L (5-15); AST (GOT) 37 U/L (15-37); BICARBONATE 17.9 MEQ/L (21.0-32.0); BLOOD UREA NITROGEN 89 MG/DL (7-18); CHLORIDE 107 MEQ/L (98-107); GLOMERULAR FILTRATION RATE 7 ML/MIN (>89); POTASSIUM 5.3 MEQ/L (3.5-5.1); SODIUM (NA) 139 MEQ/L (136-145); TOTAL BILIRUBIN ADULT 0.6 MG/DL (0.2-1.0)
[2016-05-07] MEDS ORDERED: CHLORHEXIDINE 0.12% (ORAL KIT) 15 ML CUP MT SCH (20:00)
[2016-05-07] MEDS: CHLORHEXIDINE 0.12% (ORAL KIT) 15 ML CUP MT SCH (21:20)
[2016-05-07] MEDS: SODIUM CHLORIDE 0.9% FLUSH 5 ML FLUSH IVF SCH (21:21)
[2016-05-07] MEDS: HEPARIN SODIUM - SQ 10,000 UNITS/ML VIAL SQ SCH (21:21)
[2016-05-07 21:59] LABS: MAGNESIUM 1.8 MG/DL (1.5-2.5)
[2016-05-08] VITALS (8 sets, daily range): BP systolic 150–160; BP diastolic 76–84; PULSE 94–112; RESP 24–25; TEMP 98.6–99.3; O2SAT 94–99
[2016-05-08] MEDS: PIPERACIL-TAZO 2.25 GM PREMIX 50 ML IV SCH ×2 (01:07→08:54)
[2016-05-08] MEDS: SODIUM BICARBONATE 8.4% INJ 75 MEQ in SODIUM CHLOR 0.9% 1000 ML INJ 1,000 ML IV SCH (03:18)
[2016-05-08] MEDS: PROPOFOL 1000 MG/100 ML INJ 100 ML IV SCH ×2 (03:18→05:44)
[2016-05-08] MEDS: RESP: ALBUTEROL 2.5 MG/IPRATROPIUM 0.5 MG NEB (SCH) NEB ×3 (03:42→16:00)
[2016-05-08] MEDS ORDERED: CHLORHEXIDINE GLUCONATE 2 % 1 PACK (2 CLOTHS) TOP SCH (04:00)
--- NOTE | 2016-05-08 06:13 | MG ---
cc: CYNTHIA TRIVEDI M.D. Lab No: Date: 05/07/2016 Age: Sex: M Race: REQUESTING PHYSICIAN Dr. Jama. An EEG was obtained on this 60-year-old patient with history of right hemisphere hypodensity, episodes of pulmonary embolism arrest. This was a STAT EEG, patient intubated and Diprivan on board. Tactile stimulation seems to make no change. The EEG shows prominent generalized attenuation. With the usual montage, mostly there is no overt brain origin background activity until the study shows a few brief episodes of polyspike, high amplitude and some slow wave activity lasting seconds or so and this was noted on a few occasions and is associated with some body jerking and eye jerking activity. Photic stimulation disclosed no change. INTERPRETATION Markedly abnormal EEG because of severe generalized attenuation and few episodes of high amplitude polyspike and some slow wave activity lasting a second or so. The findings suggest a severe diffuse disturbance of cerebral function, commonly seen in severe hypoxic encephalopathy. No ictal pattern. MD MONI Alexander/MICHELE /7:39 PM /6:11 AM
[2016-05-08 06:48] LABS: AUTOMATED NEUTROPHIL # 8.7 TH/MM3 (1.8-7.7); BASOPHIL % 0.1 % (0.0-2.0); HEMATOCRIT 26.2 % (39.0-51.0); HEMO FLAGS DIFF FINAL; LYMPH % 3.1 % (9.0-44.0); LYMPHOCYTE # 0.3 TH/MM3 (1.0-4.8); MEAN CELL VOLUME 95.9 FL (80.0-100.0); MEAN CORPUSCULAR HGB CONC 33.4 % (32.0-36.0); MONO % 11.1 % (0.0-8.0); NEUT % 85.7 % (16.0-70.0); PLATELET COUNT 379 TH/MM3 (150-450); RED BLOOD COUNT 2.73 MIL/MM3 (4.50-5.90); RED CELL DISTRIBUTION WIDTH 17.4 % (11.6-17.2); WHITE BLOOD COUNT 10.1 TH/MM3 (4.0-11.0)
[2016-05-08 07:23] LABS: BICARBONATE 15.6 MEQ/L (21.0-32.0); CALCIUM-PROTEIN CORRECTED 7.9 MG/DL (8.5-10.1); POTASSIUM 4.8 MEQ/L (3.5-5.1); TOTAL BILIRUBIN ADULT 0.5 MG/DL (0.2-1.0)
[2016-05-08] MEDS: HEPARIN SODIUM - SQ 10,000 UNITS/ML VIAL SQ SCH (08:54)
[2016-05-08] MEDS: SODIUM CHLORIDE 0.9% FLUSH 5 ML FLUSH IVF SCH (08:54)
[2016-05-08] MEDS ORDERED: PANTOPRAZOLE SODIUM 40 MG VIAL IV SCH (09:00)
[2016-05-08] MEDS: CHLORHEXIDINE 0.12% (ORAL KIT) 15 ML CUP MT SCH (09:02)
--- NOTE | 2016-05-08 10:51 | HHI.CCPN ---
Subjective Remarks/Hospital Course Patient is a 60-year-old male with past medical history significant for chronic kidney disease, hypertension, diabetes, dyslipidemia and tobacco abuse. Patient was brought to the ER after being successfully resuscitated following CODE BLUE. Apparently patient's mother went shopping for approximately 30 minutes, when she came back she found the patient slumped over on a chair. She immediately called EMS but did not start CPR. Within the next 10-15 minutes patient's brother in law arrived and attempted to do CPR. EMS arrived in next 5 -10 min and they took approximately 25 minutes CPR, epinephrine, atropine and bicarbonate to regain spontaneous circulation back. Initial rhythm on EMS arrival was asystole, intermittently patient was in PEA before actually getting return of spontaneous circulation. A Combitube was placed which was exchanged for endotracheal tube in the ED. Patient did not require any medication for intubation and did not have any gag reflex or cough. Pupils were dilated and fixed on arrival to the ED. I was called for evaluation for code cool. Patient was emergently sent for a CT of the head and CT PE protocol of the chest. CT head without any acute bleed but there was a chronic appearing small hypodensity near the right ventricle. CT chest did not show PE but showed bilateral pleural effusions. Lab data showed a BUN of 86 creatinine of 7.8 potassium of 6.4. His white count was 15.7 his ABG showed a pH of 7.09 PCO2 of 40 and PO2 of 361. Hyperkalemia was immediately treated with calcium chloride, 2 Amps of bicarbonate followed by bicarbonate infusion, 7 units IV insulin followed by D50. 2-D echo which was being done simultaneously- on my review showed normal ejection fraction mild MR and a possible vegetation of the anterior mitral valve. Official report is pending, discussed with Dr. Allen I evaluated the patient in the ED and also discussed with the ER physician. Patient's downtime is unknown and clearly he was in cardiac arrest more than 45 minutes prior to return of spontaneous circulation. Patient is comatose and is now has developed myoclonus. He does not meet criteria for induced hypothermia due to prolonged more than 45 minutes downtime and evidence of severe anoxic injury, and also initial rhythm being asystole. I discussed this with patient' s sister Kim and mother was also with her. Family requested to make the patient a DNR and not to resuscitated anymore. 05/08 Patient is sedated with Diprivan and intubated. On bicarb drip. Afebrile. Echo showed possible mobile vegetation on mitral valve, EF 55-60%. Afebrile. Objective Vital Signs Date Time Temp Pulse Resp B/P Pulse Ox O2 Delivery O2 Flow Rate FiO2 05/08/16 08:00 98.6 112 25 160/84 98 05/08/16 08:00 40 Intake and Output 05/07/16 05/07/16 05/08/16 08:00 16:00 00:00 Intake Total 1056 ml 432 ml Output Total 450 ml Balance 1056 ml -18 ml Result Diagram: 05/08/16 0612 05/08/16 06 Other Results Laboratory Tests Test 05/07/16 05/07/16 05/07/16 05/07/16 14:00 14:12 15:02 16:30 White Blood Count 15.7 TH/MM3 Red Blood Count 2.97 MIL/MM3 Hemoglobin 9.4 GM/DL Hematocrit 31.4 % Mean Corpuscular Volume 105.8 FL Mean Corpuscular Hemoglobin 31.7 PG Mean Corpuscular Hemoglobin 30.0 % Concent Red Cell Distribution Width 18.7 % Platelet Count 537 TH/MM3 Mean Platelet Volume 9.5 FL Neutrophils (%) (Auto) % Lymphocytes (%) (Auto) % Monocytes (%) (Auto) % Eosinophils (%) (Auto) % Basophils (%) (Auto) % Neutrophils # (Auto) TH/MM3 Lymphocytes # (Auto) TH/MM3 Monocytes # (Auto) TH/MM3 Eosinophils # (Auto) TH/MM3 Basophils # (Auto) TH/MM3 CBC Comment AUTO DIFF Differential Total Cells 100 Counted Neutrophils % (Manual) 54 % Lymphocytes % 18 % Monocytes % 23 % Eosinophils % 2 % Neutrophils # (Manual) 8.9 TH/MM3 Metamyelocytes 1 % Myelocytes 2 % Nucleated Red Blood Cells 1 /100 WBC Differential Comment FINAL DIFF MANUAL Platelet Estimate HIGH Platelet Morphology Comment NORMAL Prothrombin Time 12.0 SEC Prothromb Time International 1.1 RATIO Ratio Activated Partial 50.9 SEC Thromboplast Time Sodium Level 140 MEQ/L Potassium Level 6.4 MEQ/L Chloride Level 106 MEQ/L Carbon Dioxide Level 14.5 MEQ/L Anion Gap 20 MEQ/L Blood Urea Nitrogen 86 MG/DL Creatinine 7.75 MG/DL Estimat Glomerular Filtration 7 ML/MIN Rate Random Glucose 64 MG/DL Calcium Level 8.0 MG/DL Magnesium Level 2.5 MG/DL Total Bilirubin 0.5 MG/DL Aspartate Amino Transf 25 U/L (AST/SGOT) Alanine Aminotransferase 21 U/L (ALT/SGPT) Alkaline Phosphatase 121 U/L Total Creatine Kinase 122 U/L Creatine Kinase MB 6.3 NG/ML Troponin I 0.46 NG/ML Total Protein 6.5 GM/DL Albumin 2.7 GM/DL Urine Color YELLOW Urine Turbidity HAZY Urine pH 6.0 Urine Specific [place] 1.013 Urine Protein 300 mg/dL Urine Glucose (UA) TRACE mg/dL Urine Ketones TRACE mg/dL Urine Occult Blood MOD Urine Nitrite NEG Urine Bilirubin NEG Urine Urobilinogen LESS THAN 2.0 MG/DL Urine Leukocyte Esterase NEG Urine RBC 74 /hpf Urine WBC 18 /hpf Urine Squamous Epithelial 1 /hpf Cells Urine Amorphous Sediment RARE Urine Bacteria MOD /hpf Microscopic Urinalysis Comment CATH-CULTURE IND Urine Opiates Screen NEG Urine Barbiturates Screen NEG Urine Amphetamines Screen NEG Urine Benzodiazepines Screen NEG Urine Cocaine Screen NEG Urine Cannabinoids Screen NEG Blood Gas Puncture Site RT RADIAL Blood Gas Patient Temperature 98.6 Blood Gas HCO3 12 mmol/L Blood Gas Base Excess -16.3 mmol/L Blood Gas Oxygen Saturation 96 % Arterial Blood pH 7.09 Arterial Blood Partial 40 mmHg Pressure CO2 Arterial Blood Partial 361 mmHG Pressure O2 Arterial Blood Oxygen Content 14.9 Vol % Arterial Blood 1.7 % Carboxyhemoglobin Arterial Blood Methemoglobin 1.6 % Blood Gas Hemoglobin 10.4 G/DL Oxygen Delivery Device VENTILATOR Blood Gas Ventilator Setting Blood Gas Inspired Oxygen 100 % Nasal Screen MRSA (PCR) NEGATIVE Test 05/07/16 05/07/16 05/07/16 05/08/16 17:07 17:38 20:58 06:12 Sodium Level 139 MEQ/L 141 MEQ/L Potassium Level 5.3 MEQ/L 4.8 MEQ/L Chloride Level 107 MEQ/L 110 MEQ/L Carbon Dioxide Level 17.9 MEQ/L 15.6 MEQ/L Anion Gap 14 MEQ/L 15 MEQ/L Blood Urea Nitrogen 89 MG/DL 86 MG/DL Creatinine 7.54 MG/DL 7.09 MG/DL Estimat Glomerular Filtration 7 ML/MIN 8 ML/MIN Rate Random Glucose 150 MG/DL 175 MG/DL Lactic Acid Level 2.3 mmol/L Calcium Level 7.8 MG/DL 7.3 MG/DL Total Bilirubin 0.6 MG/DL 0.5 MG/DL Aspartate Amino Transf 37 U/L 32 U/L (AST/SGOT) Alanine Aminotransferase 27 U/L 27 U/L (ALT/SGPT) Alkaline Phosphatase 113 U/L 95 U/L Troponin I 0.72 NG/ML 1.91 NG/ML Total Protein 5.9 GM/DL 6.0 GM/DL Albumin 2.4 GM/DL 2.4 GM/DL Blood Gas Puncture Site RT RADIAL Blood Gas Patient Temperature 98.6 Blood Gas HCO3 15 mmol/L Blood Gas Base Excess -10.5 mmol/L Blood Gas Oxygen Saturation 86 % Arterial Blood pH 7.29 Arterial Blood Partial 32 mmHg Pressure CO2 Arterial Blood Partial 60 mmHg Pressure O2 Arterial Blood Oxygen Content 9.9 Vol % Arterial Blood 1.7 % Carboxyhemoglobin Arterial Blood Methemoglobin 1.3 % Blood Gas Hemoglobin 8.1 G/DL Oxygen Delivery Device VENTILATOR Blood Gas Ventilator Setting PRVC/AC 20/600/ Blood Gas Inspired Oxygen 40 % Magnesium Level 1.8 MG/DL Ethyl Alcohol Level LESS THAN 3 MG/DL White Blood Count 10.1 TH/MM3 Red Blood Count 2.73 MIL/MM3 Hemoglobin 8.7 GM/DL Hematocrit 26.2 % Mean Corpuscular Volume 95.9 FL Mean Corpuscular Hemoglobin 32.0 PG Mean Corpuscular Hemoglobin 33.4 % Concent Red Cell Distribution Width 17.4 % Platelet Count 379 TH/MM3 Mean Platelet Volume 8.6 FL Neutrophils (%) (Auto) 85.7 % Lymphocytes (%) (Auto) 3.1 % Monocytes (%) (Auto) 11.1 % Eosinophils (%) (Auto) 0.0 % Basophils (%) (Auto) 0.1 % Neutrophils # (Auto) 8.7 TH/MM3 Lymphocytes # (Auto) 0.3 TH/MM3 Monocytes # (Auto) 1.1 TH/MM3 Eosinophils # (Auto) 0.0 TH/MM3 Basophils # (Auto) 0.0 TH/MM3 CBC Comment DIFF FINAL Differential Comment Protein Corrected Calcium 7.9 MG/DL Imaging CT brain no hypodensity adjacent to right ventricle CT chest-no PE, bilateral moderate pleural effusions Objective Remarks GENERAL: Patient is comatose on the vent, GCS 3 now with myoclonus SKIN: Warm and dry. No rashes HEAD: Atraumatic. Normocephalic. EYES: Pupils are fixed and dilated at 5 mm. ENT: No nasal bleeding or discharge. Orotracheally intubated NECK: Trachea midline. CARDIOVASCULAR: Regular rate and rhythm. Systolic murmur heard in all areas RESPIRATORY: Intubated on the vent. Air entry equal bilaterally no wheezes. Heart spontaneous breathing GASTROINTESTINAL: Abdomen soft, non-tender. MUSCULOSKELETAL: No obvious deformities. No edema. NEUROLOGICAL: [place] Coma Score of 3. Comatose. No withdrawal to deep pain. Involuntary jerky movements of upper and lower extremities indicating myoclonus. 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 CV: Cardiac arrest/Asystole Shock Probable mitral valve regurgitation Pulmonary edema Mild troponin elevation Lactic acidosis Vegetation on Mitral valve -Return of spontaneous circulation after 25 minutes of CPR, prolonged downtime prior to initiation of CPR -Unclear etiology of asystole, could be hyperkalemia versus acute NV -2-D echo: EF 55-60%, mobile vegetation on mitral valve -Cycle troponin. 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 ENDO: Type 2 diabetes -SSI if needed PROPH: -Bilateral lower extremity SCDs. Heparin 5000 units subcutaneous every 12. IV Protonix 40 mg daily for GI prophylaxis LINES: -Utilize peripheral IVs, place central line if needed Palliative care eval to asses with goals of care- discussed with Marvin Rosas MD May 08, 2016 10:50
[2016-05-08] MEDS ORDERED: LORazepam 2 MG/ML VIAL IV ONE ×2 (13:15→13:45)
[2016-05-08] MEDS ORDERED: HYOSCYAMINE 0.5 MG/ML AMP IV ONE (13:15)
--- NOTE | 2016-05-08 13:35 | PD.CONS ---
Consult Service Palliative Care Consult Requested By Dr. Lan . Primary Care Physician Mima Molina MD . Reason for Consultation a. To assist with evaluation and management of symptoms including: Dyspnea , seizures b. To assist medical decision maker(s) with: better understanding of current medical conditions; weighing benefits/burdens of medical treatment options; making medical treatment decisions. . HPI History of Present Illness This 60-year-old male, with a past history of chronic kidney disease, diabetes, and cigarette smoking, was found unresponsive and in cardiac arrest by his mother after she had been gone from home about 30 minutes. 911 was called and CPR was eventually initiated; he was found to be in asystole. The patient was unable to be intubated in the field, and the resuscitation effort was continued. A return of spontaneous circulation finally occurred, an estimated 45 minutes after the patient was found down. In the emergency department, the patient was intubated, and findings included: * Unresponsive, some mild clonus * White count 15.7, hemoglobin 9.4 * Sodium 141, creatinine 7.09, and he was hyperkalemic * Troponin 0.41 * Chest x-ray consistent with fluid overload * CT brain scan with a hypodense area but no acute findings The patient was not a candidate for Code Cool, and he was admitted to intensive care. He had evidence of mild clonus/seizure repeatedly. An EEG was accomplished and revealed profound dysfunction. The hyperkalemia was addressed. The patient's family arrived, and after discussion with the dietetics teacher, the patient was made DNR, and Palliative Care was consulted to assist with symptom management, to discuss the prognosis and the benefits and burdens of future treatment options, and to assist with withdrawal of life support if the family elected to pursue that. . Function/Cognitive Trajectory The patient was living with his mother the past 5 years, but he was functioning independently at home. In fact, he had just finished painting the exterior of the house last week. . Review of Systems ROS Limitations: Clinical Condition (history per patient's family), Intubated, Unresponsive Constitutional: DENIES: Weight loss Endocrine: DENIES: Polyuria Eyes: DENIES: Eye inflammation Ears, nose, mouth, throat: DENIES: Epistaxis Respiratory: DENIES: Shortness of breath Cardiovascular: DENIES: Chest pain Gastrointestinal: DENIES: Diarrhea, Vomiting Genitourinary: DENIES: Hematuria Musculoskeletal: DENIES: Joint pain Integumentary: DENIES: Rash Hematologic/Lymphatics: DENIES: Bruising Immunologic/Allergic: DENIES: Urticaria Neurologic: COMPLAINS OF: Seizures (since the code), DENIES: Localized weakness Psychiatric: DENIES: Depression, Hallucinations, Agitation Past Family Social History Coded Allergies: No Known Allergies (Unverified , 05/05/16) Past Medical History * Cardiac arrest * Renal failure (with recent CKD diagnosis), hyperkalemia * Respiratory failure * Anoxic brain injury * History of alcohol abuse, sober the past couple years * 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 Current Medications Medications (Trade) Dose Ordered Sig/Mango Route Start Time Stop Time Status Last Admin (NS Flush) 2 ml UNSCH PRN IVF 05/07/16 14:45 (NS Flush) 2 ml BID IVF 05/07/16 21:00 05/08/16 08:54 (Morphine Inj) 10 mg ONCE ONCE IV PUSH 05/08/16 13:15 05/08/16 13:16 UNV (Ativan Inj) 10 mg ONCE ONCE IV 05/08/16 13:15 05/08/16 13:16 UNV (Levsin Inj) 0.25 mg ONCE ONCE IV 05/08/16 13:15 05/08/16 13:16 UNV (Morphine Inj) 6 mg ONCE ONCE IV 05/08/16 13:45 05/08/16 13:46 UNV (Ativan Inj) 4 mg ONCE ONCE IV 05/08/16 13:45 05/08/16 13:46 UNV (Morphine Inj) 10 mg Q4HR IV 05/08/16 16:00 UNV (Morphine Inj) 4 mg Q30M PRN IV 05/08/16 13:45 UNV (Morphine Inj) 6 mg Q30M PRN IV PUSH 05/08/16 13:45 UNV (Ativan Inj) 6 mg Q4HR IV 05/08/16 16:00 UNV (Ativan Inj) 2 mg Q1H PRN IV 05/08/16 13:45 UNV (Ativan Inj) 4 mg Q1H PRN IV 05/08/16 13:45 UNV (Ativan Inj) 3 mg Q15M PRN IVS 05/08/16 13:45 UNV (Levsin Inj) 0.25 mg Q4H PRN IV 05/08/16 13:45 UNV (Tylenol Supp) 650 mg Q4H PRN [place] 05/08/16 13:45 UNV (Lasix Inj) 20 mg Q6H PRN IV 05/08/16 13:45 UNV (Dulcolax Supp) 10 mg DAILY PRN [place] 05/08/16 13:45 UNV Family History The patient's father with hospice services of Parkinson's disease and heart disease. There is no family history of renal failure. . Substance Use Tobacco: Longtime smoker Alcohol: The patient was a heavy drinker until his father a couple years ago, and he has had very little alcohol since then. Prescription med abuse: None. Illicits: None. . Psychosocial History The patient was born in [place], [place], worked in various places around the [facility], but moved in with his parents about 5 years ago. He has never been and has no children. 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 . Spiritual/Cultural Factors Spirituality was not important to the patient. . Living Will: Never completed Health Care Surrogate: Never completed Durable Power of Abalone Sheller: Never completed Family/friends goals: The patient's mother and sister do not want the patient kept live artificially, and have requested withdrawal of life support. . Ethical and Legal Issues There are no ethical issues that would impact his care or decision-making at this time. The patient lacks capacity for decision making, and he will not regain that capacity -- due to the profound anoxic brain injury. His only family is his mother and sister, and they are functioning has the co-decision makers. Physical Exam Vital Signs Date Time Temp Pulse Resp B/P Pulse Ox O2 Delivery O2 Flow Rate FiO2 05/08/16 11:19 94 40 05/08/16 08:00 98.6 112 25 160/84 98 05/08/16 08:00 40 05/08/16 07:25 96 40 05/08/16 04:10 97 40 05/08/16 04:00 98.6 97 25 150/76 97 05/08/16 04:00 40 05/08/16 01:05 98 40 05/08/16 00:00 99.0 94 24 150/81 99 05/08/16 00:00 40 05/07/16 22:04 99 40 05/07/16 20:00 96.3 85 21 132/73 96 05/07/16 20:00 60 05/07/16 19:25 97 50 05/07/16 18:00 75 05/07/16 17:10 98 40 05/07/16 17:00 78 20 125/66 98 05/07/16 16:00 98.6 90 22 117/62 100 05/07/16 14:50 100 100 05/07/16 14:15 100 100 05/07/16 14:06 100 05/07/16 13:52 97.9 61 0 116/67 97 05/07/16 13:45 97.9 53 20 116/67 97 05/07/16 05/08/16 19:00 07:00 Intake Total 1056 ml 969 ml Output Total 1225 ml Balance 1056 ml -256 ml Intake Oral 0 ml IV Total 1056 ml 969 ml Output Urine Total 1025 ml Gastric Drainage Total 200 ml # Bowel Movements 0 Exam CONSTITUTIONAL/GENERAL: This is an adequately nourished patient, in no apparent distress. Unresponsive, on the ventilator TUBES/LINES/DRAINS: ET tube, Oconnor catheter, SCDs, central line SKIN: No jaundice, rashes, or lesions. Ecchymoses on upper extremities. No wounds seen anteriorly. Skin temperature appropriate. Not diaphoretic. HEAD: Atraumatic. Normocephalic. EYES: Pupils not reactive. No scleral icterus. No injection or drainage. Fundi not examined. ENT: Nose without bleeding or purulent drainage. NECK: Trachea midline. Supple, nontender. No palpable thyroid enlargement or nodularity. CARDIOVASCULAR: Regular rate and rhythm without murmurs, gallops, or rubs. No JVD. Peripheral pulses symmetric. Tachycardic RESPIRATORY/CHEST: Symmetric, somewhat tachypneic, scattered rhonchi. GASTROINTESTINAL: Abdomen soft, nondistended. No hepato-splenomegaly, or palpable masses. No guarding. Bowel sounds present. GENITOURINARY: Without palpable bladder distension. Oconnor catheter in place. MUSCULOSKELETAL: Extremities without clubbing, cyanosis, or edema. No joint tenderness or effusion noted. No calf tenderness. No mottling or clubbing. LYMPHATICS: No palpable cervical or supraclavicular adenopathy. NEUROLOGICAL: Unresponsive PSYCHIATRIC: Unable to assess due to clinical condition . Diagnostic Tests Laboratory Laboratory Tests Test 05/07/16 05/07/16 05/07/16 05/07/16 14:00 14:12 15:02 16:30 White Blood Count 15.7 TH/MM3 (4.0-11.0) Red Blood Count 2.97 MIL/MM3 (4.50-5.90) Hemoglobin 9.4 GM/DL (13.0-17.0) Hematocrit 31.4 % (39.0-51.0) Mean Corpuscular Volume 105.8 FL (80.0-100.0) Mean Corpuscular Hemoglobin 31.7 PG (27.0-34.0) Mean Corpuscular Hemoglobin 30.0 % Concent (32.0-36.0) Red Cell Distribution Width 18.7 % (11.6-17.2) Platelet Count 537 TH/MM3 (150-450) Mean Platelet Volume 9.5 FL (7.0-11.0) Neutrophils (%) (Auto) % (16.0-70.0) Lymphocytes (%) (Auto) % (9.0-44.0) Monocytes (%) (Auto) % (0.0-8.0) Eosinophils (%) (Auto) % (0.0-4.0) Basophils (%) (Auto) % (0.0-2.0) Neutrophils # (Auto) TH/MM3 (1.8-7.7) Lymphocytes # (Auto) TH/MM3 (1.0-4.8) Monocytes # (Auto) TH/MM3 (0-0.9) Eosinophils # (Auto) TH/MM3 (0-0.4) Basophils # (Auto) TH/MM3 (0-0.2) CBC Comment AUTO DIFF Differential Total Cells 100 Counted Neutrophils % (Manual) 54 % (16-70) Lymphocytes % 18 % (9-44) Monocytes % 23 % (0-8) Eosinophils % 2 % (0-4) Neutrophils # (Manual) 8.9 TH/MM3 (1.8-7.7) Metamyelocytes 1 % (0-1) Myelocytes 2 % (0-0) Nucleated Red Blood Cells 1 /100 WBC (0-0) Differential Comment FINAL DIFF MANUAL Platelet Estimate HIGH (NORMAL) Platelet Morphology Comment NORMAL (NORMAL) Prothrombin Time 12.0 SEC (9.8-11.6) Prothromb Time International 1.1 RATIO Ratio Activated Partial 50.9 SEC Thromboplast Time (24.3-30.1) Sodium Level 140 MEQ/L (136-145) Potassium Level 6.4 MEQ/L (3.5-5.1) Chloride Level 106 MEQ/L (98-107) Carbon Dioxide Level 14.5 MEQ/L (21.0-32.0) Anion Gap 20 MEQ/L (5-15) Blood Urea Nitrogen 86 MG/DL (7-18) Creatinine 7.75 MG/DL (0.60-1.30) Estimat Glomerular Filtration 7 ML/MIN (>89) Rate Random Glucose 64 MG/DL (74-106) Calcium Level 8.0 MG/DL (8.5-10.1) Magnesium Level 2.5 MG/DL (1.5-2.5) Total Bilirubin 0.5 MG/DL (0.2-1.0) Aspartate Amino Transf 25 U/L (15-37) (AST/SGOT) Alanine Aminotransferase 21 U/L (12-78) (ALT/SGPT) Alkaline Phosphatase 121 U/L (45-117) Total Creatine Kinase 122 U/L (39-308) Creatine Kinase MB 6.3 NG/ML (0.5-3.6) Troponin I 0.46 NG/ML (0.02-0.05) Total Protein 6.5 GM/DL (6.4-8.2) Albumin 2.7 GM/DL (3.4-5.0) Urine Color YELLOW (YELLW/STRAW) Urine Turbidity HAZY (CLEAR) Urine pH 6.0 (5.0-8.5) Urine Specific [place] 1.013 (1.002-1.035) Urine Protein 300 mg/dL (NEG-TRACE) Urine Glucose (UA) TRACE mg/dL (NEG) Urine Ketones TRACE mg/dL (NEG) Urine Occult Blood MOD (NEG) Urine Nitrite NEG (NEG) Urine Bilirubin NEG (NEG) Urine Urobilinogen LESS THAN 2.0 MG/DL (LESS THAN 2.0) Urine Leukocyte Esterase NEG (NEG) Urine RBC 74 /hpf (0-3) Urine WBC 18 /hpf (0-5) Urine Squamous Epithelial 1 /hpf (0-5) Cells Urine Amorphous Sediment RARE Urine Bacteria MOD /hpf (NONE) Microscopic Urinalysis Comment CATH-CULTURE IND Urine Opiates Screen NEG (NEG) Urine Barbiturates Screen NEG (NEG) Urine Amphetamines Screen NEG (NEG) Urine Benzodiazepines Screen NEG (NEG) Urine Cocaine Screen NEG (NEG) Urine Cannabinoids Screen NEG (NEG) Blood Gas Puncture Site RT RADIAL Blood Gas Patient Temperature 98.6 Blood Gas HCO3 12 mmol/L (22-26) Blood Gas Base Excess -16.3 mmol/L (-2-2) Blood Gas Oxygen Saturation 96 % (90-100) Arterial Blood pH 7.09 (7.380-7.420) Arterial Blood Partial 40 mmHg (38-42) Pressure CO2 Arterial Blood Partial 361 mmHG Pressure O2 (61-120) Arterial Blood Oxygen Content 14.9 Vol % (12.0-20.0) Arterial Blood 1.7 % (0-4) Carboxyhemoglobin Arterial Blood Methemoglobin 1.6 % (0-2) Blood Gas Hemoglobin 10.4 G/DL (12.0-16.0) Oxygen Delivery Device VENTILATOR Blood Gas Ventilator Setting Blood Gas Inspired Oxygen 100 % Nasal Screen MRSA (PCR) NEGATIVE (NEGATIVE) Test 05/07/16 05/07/16 05/07/16 05/08/16 17:07 17:38 20:58 06:12 Sodium Level 139 MEQ/L 141 MEQ/L (136-145) (136-145) Potassium Level 5.3 MEQ/L 4.8 MEQ/L (3.5-5.1) (3.5-5.1) Chloride Level 107 MEQ/L 110 MEQ/L (98-107) (98-107) Carbon Dioxide Level 17.9 MEQ/L 15.6 MEQ/L (21.0-32.0) (21.0-32.0) Anion Gap 14 MEQ/L (5-15) 15 MEQ/L (5-15) Blood Urea Nitrogen 89 MG/DL (7-18) 86 MG/DL (7-18) Creatinine 7.54 MG/DL 7.09 MG/DL (0.60-1.30) (0.60-1.30) Estimat Glomerular Filtration 7 ML/MIN (>89) 8 ML/MIN (>89) Rate Random Glucose 150 MG/DL 175 MG/DL (74-106) (74-106) Lactic Acid Level 2.3 mmol/L (0.4-2.0) Calcium Level 7.8 MG/DL 7.3 MG/DL (8.5-10.1) (8.5-10.1) Total Bilirubin 0.6 MG/DL 0.5 MG/DL (0.2-1.0) (0.2-1.0) Aspartate Amino Transf 37 U/L (15-37) 32 U/L (15-37) (AST/SGOT) Alanine Aminotransferase 27 U/L (12-78) 27 U/L (12-78) (ALT/SGPT) Alkaline Phosphatase 113 U/L 95 U/L (45-117) (45-117) Troponin I 0.72 NG/ML 1.91 NG/ML (0.02-0.05) (0.02-0.05) Total Protein 5.9 GM/DL 6.0 GM/DL (6.4-8.2) (6.4-8.2) Albumin 2.4 GM/DL 2.4 GM/DL (3.4-5.0) (3.4-5.0) Blood Gas Puncture Site RT RADIAL Blood Gas Patient Temperature 98.6 Blood Gas HCO3 15 mmol/L (22-26) Blood Gas Base Excess -10.5 mmol/L (-2-2) Blood Gas Oxygen Saturation 86 % (90-100) Arterial Blood pH 7.29 (7.380-7.420) Arterial Blood Partial 32 mmHg (38-42) Pressure CO2 Arterial Blood Partial 60 mmHg Pressure O2 (61-120) Arterial Blood Oxygen Content 9.9 Vol % (12.0-20.0) Arterial Blood 1.7 % (0-4) Carboxyhemoglobin Arterial Blood Methemoglobin 1.3 % (0-2) Blood Gas Hemoglobin 8.1 G/DL (12.0-16.0) Oxygen Delivery Device VENTILATOR Blood Gas Ventilator Setting PRVC/AC 20/600/ Blood Gas Inspired Oxygen 40 % Magnesium Level 1.8 MG/DL (1.5-2.5) Ethyl Alcohol Level LESS THAN 3 MG/DL (0-5) White Blood Count 10.1 TH/MM3 (4.0-11.0) Red Blood Count 2.73 MIL/MM3 (4.50-5.90) Hemoglobin 8.7 GM/DL (13.0-17.0) Hematocrit 26.2 % (39.0-51.0) Mean Corpuscular Volume 95.9 FL (80.0-100.0) Mean Corpuscular Hemoglobin 32.0 PG (27.0-34.0) Mean Corpuscular Hemoglobin 33.4 % Concent (32.0-36.0) Red Cell Distribution Width 17.4 % (11.6-17.2) Platelet Count 379 TH/MM3 (150-450) Mean Platelet Volume 8.6 FL (7.0-11.0) Neutrophils (%) (Auto) 85.7 % (16.0-70.0) Lymphocytes (%) (Auto) 3.1 % (9.0-44.0) Monocytes (%) (Auto) 11.1 % (0.0-8.0) Eosinophils (%) (Auto) 0.0 % (0.0-4.0) Basophils (%) (Auto) 0.1 % (0.0-2.0) Neutrophils # (Auto) 8.7 TH/MM3 (1.8-7.7) Lymphocytes # (Auto) 0.3 TH/MM3 (1.0-4.8) Monocytes # (Auto) 1.1 TH/MM3 (0-0.9) Eosinophils # (Auto) 0.0 TH/MM3 (0-0.4) Basophils # (Auto) 0.0 TH/MM3 (0-0.2) CBC Comment DIFF FINAL Differential Comment Protein Corrected Calcium 7.9 MG/DL (8.5-10.1) Result Diagram: 05/08/1612 05/08/16 0612 Microbiology Microbiology Date/Time Procedure Status Source Growth 05/07/16 14:12 Urine Culture - Preliminary Resulted Urine Catheterized Urine NO GROWTH IN 24 HOURS. 05/07/16 17:01 Aerobic Blood Culture - Preliminary Resulted Blood Peripheral NO GROWTH IN 1 DAY 05/07/16 17:01 Anaerobic Blood Culture - Preliminary Resulted Blood Peripheral NO GROWTH IN 1 DAY 05/07/16 17:07 Aerobic Blood Culture - Preliminary Resulted Blood Peripheral NO GROWTH IN 1 DAY 05/07/16 17:07 Anaerobic Blood Culture - Preliminary Resulted Blood Peripheral NO GROWTH IN 1 DAY Imaging Last Impressions CT Angiography 05/07/16 1408 Signed Impressions: Service Date/Time: April 14:33 - CONCLUSION: 1. No pulmonary embolus identified. 2. Bilateral pleural effusions, cardiomegaly and compressive atelectasis. Rigo Alston MD Chest X-Ray 05/07/16 1353 Signed Impressions: Service Date/Time: April 15:22 - CONCLUSION: Lines and tubes appear appropriate in position. Findings consistent with volume overload versus pulmonary edema.. Bisi Sprague MD Head CT 05/07/16 0000 Signed Impressions: Service Date/Time: April 14:26 - CONCLUSION: Focal hypodensity adjacent to the right lateral ventricle. Chronicity is unknown. No evidence of sulcal effacement, mass effect or midline shift. Consider MRI when clinically able.. Bisi Sprague MD Procedures INTUBATION 05/07/16 . Patient/Family Conference Present at Family Conference: Mother and sister Kim. . Family Conference Time (mins): 35 Family Conference Location: Consult Room Issues Discussed: * Palliative care role, purpose, approach * Hospice care role, purpose, approach * Additional medical, psychosocial, and spiritual history * Patients general health, functional status, and cognitive changes in the months leading up to the current hospitalization * Patient/family understanding of the current medical problems * Patient/family understanding of prognosis * Patients goals of care as best understood from advance directives and/or conversations and/or values * Current medical treatment options and benefits/burdens of those options * Likely scenarios comparing ongoing aggressive care with a transition to comfort measures only * Questions answered to the best of my ability * Palliative care contact information provided The patient's mother and sister are certain the patient would not want to be kept alive artificially, and, in light of the extremely poor prognosis, they request transition to comfort care and withdrawal of life support to allow natural . . 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 Unemployed. Spiritual: Per urology has not been important for him, but the family has requested financial advisor trainee visit. Legal: The patient lacks capacity for decision making, and he will not regain that capacity -- due to the profound anoxic brain injury. His only family is his mother and sister, and they are functioning has the co-decision makers. Ethical issues impacting care: None. . Important Contacts Mother: Adele Harper [phone] Sister: Kim Fontana [phone] . Prognosis The patient is terminal. He has no opportunity for any meaningful recovery. . Code Status: No Code Plan * DO NOT RESUSCITATE * DECISION-MAKING: The patient lacks capacity for decision making, and he will not regain that capacity -- due to the profound anoxic brain injury. His only family is his mother and sister, and they are functioning has the co-decision makers. * GOALS: The patient's mother and sister are certain the patient would not want to be kept alive artificially, and, in light of the extremely poor prognosis, they request transition to comfort care and withdrawal of life support to allow natural . * SYMPTOMS: His dyspnea will be managed by morphine/Ativan. He will be kept on large doses of Ativan to hopefully avoid seizures. * Supervisor Grading notified that family wants a visit. * Hospice will be consulted in the morning if has not come to the patient by then. * Palliative Care will continue to follow the patient during this hospitalization. . Time Spent Total Floor Time (mins): 76 Face to Face Time (mins): 39 >50% Counseling/Coord of Care: Yes (discussed with RN and with Dr. Lan) Thank you for the opportunity to participate in the care of Mr. Harper. Attestation To help prompt me to consider important information that might be impacting today's encounter and assessment, information from prior notes written by myself or my colleagues may have been "brought forward" into today's note. My signature on this note, however, is an attestation that I personally performed the exam, history, and/or decision-making noted today, and, unless otherwise indicated, the interactions with patient, family, and staff as well as the review of records all occurred today. I also attest that the listed assessment and stated plan reflect my best clinical judgment today based on the combination of historical information, prior notes, and today's exam/ interactions. When time spent is documented, it refers only to time spent today by the signer, or if indicated, combined time spent today by collaborating physician/nurse practitioner. June Giron MD May 08, 2016 13:35
[2016-05-08] MEDS ORDERED: MORPHINE SULFATE 4 MG/ML INJ IV PRN (13:45)
[2016-05-08] MEDS ORDERED: FUROSEMIDE 20 MG/2 ML VIAL IV PRN (13:45)
[2016-05-08] MEDS ORDERED: HYOSCYAMINE 0.5 MG/ML AMP IV PRN (13:45)
[2016-05-08] MEDS ORDERED: MORPHINE SULFATE 8 MG/ML INJ IV PUSH PRN (13:45)
[2016-05-08] MEDS ORDERED: LORazepam 2 MG/ML VIAL IV PRN ×2 (13:45)
[2016-05-08] MEDS ORDERED: LORazepam 2 MG/ML VIAL IVS PRN (13:45)
[2016-05-08] MEDS ORDERED: MORPHINE SULFATE 4 MG/ML INJ IV ONE (13:45)
[2016-05-08] MEDS ORDERED: BISACODYL 10 MG SUPP PR PRN (13:45)
[2016-05-08] MEDS ORDERED: ACETAMINOPHEN 650 MG SUPP PR PRN (13:45)
[2016-05-08] MEDS ORDERED: MORPHINE SULFATE 8 MG/ML INJ IV PUSH ONE (14:00)
[2016-05-08] MEDS ORDERED: ENOXAPARIN SODIUM 40 MG/0.4 ML SYRINGE SQ SCH (15:00)
[2016-05-08] MEDS ORDERED: LORazepam 2 MG/ML VIAL IV SCH (16:00)
[2016-05-08] MEDS ORDERED: MORPHINE SULFATE 4 MG/ML INJ IV SCH (16:00)
--- NOTE | 2016-05-08 16:47 | EKG ---
Date Performed: 05/07/2016 Time Performed: 13:47:11 PTAGE: 60 years EKG: SINUS BRADYCARDIA WITH FIRST DEGREE AV BLOCK MINIMAL ST DEPRESSION ABNORMAL ECG NO PREVIOUS TRACING DOCTOR: Wesley Hurt Interpretating Date/Time 05/08/2016 16:45:43
--- NOTE | 2016-05-27 14:44 | MD ---
cc: MARGE DENISE M.D. ADMISSION DATE: 05/07/2016 DISCHARGE DATE: 05/08/2016 DATE OF : 1955 BRIEF HISTORY The patient is a 60-year-old male with past medical history of chronic kidney disease, hypertension, diabetes, dyslipidemia, tobacco abuse. He was brought into the ED post cardiac arrest. The patient's mother went shopping for approximately 30 minutes and when she came back she found the patient slumped over in a chair and immediately called EMS. EMS arrived and ACLS protocol was initiated. The initial rhythm was asystole intermittently then PEA. The patient had successful return of spontaneous circulation. He was orally intubated in the ER. A stat. CT head was obtained which showed no acute bleed, but a chronic appearing small hypodensity in the right ventricle. A CT scan of the chest did not show any evidence of PE, however, it showed bilateral effusions. His laboratory data is significant for acute renal failure with hyperkalemia and potassium level of 6.4. In addition his initial blood gas showed a pH of 7.09, CO2 40, PAO2 361. His hyperkalemia was treated with calcium chloride, IV insulin, bicarb infusion and D50. Echocardiogram showed a normal ejection fraction, mild MR and possible vegetation of the anterior mitral valve. HOSPITAL COURSE He was admitted to the ICU where he was sedated with Diprivan and placed on a bicarb drip. His official echo reading showed possible mobile vegetation on the mitral valve and EF of 55-60%. An EEG was obtained which showed findings compatible with severe disturbance of the cerebral function. The patient did not meet the criteria for induced hypothermia due to prolonged arrest severe anoxic brain injury and asystole as a presenting rhythm. He was kept on a ventilator and maintained saturation above 92%. In addition an ICU vent bundle was initiated and placed on bronchodilators. The patient was given a three-liter bolus of fluids along with a bicarb drip. The patient also was placed on broad-spectrum antibiotics for possible aspiration and placed on sliding scale insulin for glycemic control. He was kept on GI and DVT prophylaxis. Palliative Care met with the family and they elected to withdraw life support and transition to comfort care. He on May 08, 2016. MD LARISSA Lyons /3:41 PM /2:36 PM
== END 2016-05-08 16:46 | disposition expired | DRG 871 ==
LOC: NEPA 13:40 → NEDA 14:25 → HIMN 15:48
PROVIDERS: ADMIT Internal Medicine; ATTEND Internal Medicine
DX: A41.9 Sepsis, unspecified organism (principal); I33.0 Acute and subacute infective endocarditis; J96.00 Acute respiratory failure, unspecified whether with hypoxia or hypercapnia; R57.9 Shock, unspecified; I46.9 Cardiac arrest, cause unspecified; R40.20 Unspecified coma; J81.0 Acute pulmonary edema; J90 Pleural effusion, not elsewhere classified; G93.1 Anoxic brain damage, not elsewhere classified; E87.2 Acidosis; N17.9 Acute kidney failure, unspecified; N39.0 Urinary tract infection, site not specified; E11.22 Type 2 diabetes mellitus with diabetic chronic kidney disease; D50.9 Iron deficiency anemia, unspecified; E78.5 Hyperlipidemia, unspecified; E87.5 Hyperkalemia; G25.3 Myoclonus; I12.9 Hypertensive chronic kidney disease with stage 1 through stage 4 chronic kidney disease, or unspecified chronic kidney disease; N18.9 Chronic kidney disease, unspecified; I34.0 Nonrheumatic mitral (valve) insufficiency; E87.70 Fluid overload, unspecified; J43.9 Emphysema, unspecified; R40.2430 Glasgow coma scale score 3-8, unspecified time; R56.9 Unspecified convulsions; Z51.5 Encounter for palliative care; Z66 Do not resuscitate; F17.210 Nicotine dependence, cigarettes, uncomplicated
CPT/HCPCS: 31500; 36600; 51702; 70450; 71010; 71275; 80053; 80307; 80320; 81001; 82550; 82552; 82805; 83605; 83735; 84484; 85007; 85025; 85027; 85610; 85730; 87040; 87086; 87641; 93005; 93306; 94002; 94003; 94640; 94664; 95819; 96374; C9113; J1265; J1644; J1815; J1980; J2060; J2270; J2543; J3370; J7030; J7050; Q9967